=== PATIENT | female | born 1950 | race Two or more races ===

== ENCOUNTER 2020-10-27 20:38 | Emergency (ER) | payer OTHER, MEDICAID ==
[~2020-10-27] VITALS: Ht 160 cm; Wt 63.5 kg
[2020-10-27 22:23] LABS: Basophils # (auto) 0 10 ^3/uL (0-0.2); Basophils % (auto) 0.4 % (0.0-2.0); Eosinophils # (auto) 0.3 10 ^3/uL (0-0.8); Eosinophils % (auto) 4.8 % (0.0-7.0); Hematocrit 37.9 % (36.0-46.0); Hemoglobin 13.5 g/dL (12.2-16.2); Lymphocytes # (auto) 1.9 10 ^3/uL (0.4-5.4); Mean Corpuscular Hemoglobin 32.1 pg (28.0-32.0); Mean Corpuscular Hgb Conc. 35.6 g/dL (32.0-36.0); Mean Corpuscular Volume 90.1 fL (80.0-100.0); Monocytes # (auto) 0.3 10 ^3/uL (0-1.3); Monocytes % (auto) 6.2 % (0.0-12.0); Neutrophils # (auto) 2.9 10 ^3/uL (1.6-8.6); Neutrophils % (auto) 53.6 % (37.0-80.0); Nucleated Red Blood Cells % 0.1 %; Platelet Count (auto) 230 10^3/uL (140-450); Red Cell Distribution Width 13.1 % (11.8-14.3); White Blood Cell 5.4 10^3/uL (4.4-10.8)
[2020-10-27 22:41] LABS: Albumin 3.6 g/dL (3.4-5.0); Anion Gap 5 (5-15); BUN/Creatinine Ratio 12.5; Blood Urea Nitrogen 13 mg/dL (7-18); Calcium 9.4 mg/dL (8.5-10.1); Carbon Dioxide 29 mmol/L (21-32); Chloride 104 mmol/L (98-107); GFR African American 68 mL/min; GFR Non-African American 56 mL/min; Glucose 286 mg/dL (74-106); Potassium 4.1 mmol/L (3.5-5.1); Sodium 138 mmol/L (136-145)
[2020-10-27 22:46] LABS: Alanine Aminotransferase 29 U/L (13-56); Alkaline Phosphatase 57 U/L (45-117); Aspartate Aminotransferase 19 U/L (15-37); Bilirubin, Total 0.2 mg/dL (0.2-1.0); Total Protein 7.4 g/dL (6.4-8.2)
[2020-10-28] MEDS ORDERED: HYDROcodone-ACET 5/325MG TAB PO ONE
[2020-10-28] MEDS ORDERED: HEPARIN DRIP/D5W 100UNITS/ML 250 ML IV SCH ×2 (01:30→02:45)
[2020-10-28] MEDS ORDERED: HEPARIN SODIUM (PORCINE) 5000 UNITS/ML 1ML VIAL IV ONE ×2 (01:30→02:45)
[2020-10-28 01:41] LABS: Urine Bacteria FEW /hpf (None Seen); Urine Blood Negative /uL (Negative); Urine Specific Gravity 1.013 (1.001-1.035); Urine WBC 8 /hpf (0 - 5)
[2020-10-28 02:39] LABS: INR 1.03 (0.9-1.15); Partial Thromboplastin Time 26.5 sec (23.0-31.2)
[2020-10-28 03:44] VITALS: BP 136/59
[2020-10-28] MEDS ORDERED: HYDROcodone-ACET 7.5/325MG TAB PO ONE (04:15)
== END 2020-10-28 05:58 | disposition home or self-care (01) ==
LOC: ER 20:38
DX: I82.602 Acute embolism and thrombosis of unspecified veins of left upper extremity (principal); E78.5 Hyperlipidemia, unspecified; E11.9 Type 2 diabetes mellitus without complications; I10 Essential (primary) hypertension; Z20.822 Contact with and (suspected) exposure to COVID-19
CPT/HCPCS: 36415; 71045; 80053; 81001; 83880; 84484; 85025; 85049; 85610; 85730; 87426; 93005; 93971; 96365; 96376; 99285; J1644

== ENCOUNTER 2020-11-10 10:55 | Emergency (ER) | payer OTHER, MEDICAID ==
[~2020-11-10] VITALS: Ht 165.1 cm; Wt 61.2 kg
[2020-11-10] MEDS ORDERED: LORazepam 2MG/ML-1ML VIAL IV ONE (11:15)
[2020-11-10 11:42] LABS: Basophils # (auto) 0 10 ^3/uL (0-0.2); Basophils % (auto) 0.2 % (0.0-2.0); Eosinophils # (auto) 0 10 ^3/uL (0-0.8); Hematocrit 38.8 % (36.0-46.0); Hemoglobin 13.3 g/dL (12.2-16.2); Lymphocytes # (auto) 1.4 10 ^3/uL (0.4-5.4); Lymphocytes % (auto) 11.9 % (10.0-50.0); Mean Corpuscular Hemoglobin 30.5 pg (28.0-32.0); Mean Corpuscular Hgb Conc. 34.3 g/dL (32.0-36.0); Mean Corpuscular Volume 89.1 fL (80.0-100.0); Monocytes # (auto) 0.8 10 ^3/uL (0-1.3); Monocytes % (auto) 6.3 % (0.0-12.0); Neutrophils # (auto) 9.7 10 ^3/uL (1.6-8.6); Neutrophils % (auto) 81.6 % (37.0-80.0); Red Blood Cells 4.35 10^6/uL (4.0-5.20); Red Cell Distribution Width 13.1 % (11.8-14.3); White Blood Cell 11.9 10^3/uL (4.4-10.8)
[2020-11-10 12:00] LABS: INR 1.22 (0.9-1.15); Partial Thromboplastin Time 35.8 sec (23.0-31.2)
[2020-11-10 12:03] LABS: Chloride 94 mmol/L (98-107); Potassium 3.7 mmol/L (3.5-5.1); Sodium 127 mmol/L (136-145)
[2020-11-10 12:15] LABS: Alanine Aminotransferase 26 U/L (13-56); Albumin 3.9 g/dL (3.4-5.0); Alkaline Phosphatase 54 U/L (45-117); Anion Gap 10 (5-15); Aspartate Aminotransferase 15 U/L (15-37); BUN/Creatinine Ratio 9.7; Blood Urea Nitrogen 11 mg/dL (7-18); Calcium 9.1 mg/dL (8.5-10.1); Carbon Dioxide 23 mmol/L (21-32); GFR African American 62 mL/min; GFR Non-African American 51 mL/min; Glucose 258 mg/dL (74-106); Total Protein 8.4 g/dL (6.4-8.2)
[2020-11-10 13:26] VITALS: BP 105/48
== END 2020-11-10 13:53 | disposition home or self-care (01) ==
LOC: EDBD 10:55 → ER 10:55
DX: F41.9 Anxiety disorder, unspecified (principal); D72.829 Elevated white blood cell count, unspecified; I82.890 Acute embolism and thrombosis of other specified veins; I10 Essential (primary) hypertension; E11.9 Type 2 diabetes mellitus without complications; Z90.49 Acquired absence of other specified parts of digestive tract; Z88.5 Allergy status to narcotic agent
CPT/HCPCS: 36415; 70450; 71045; 80053; 84484; 85025; 85610; 85730; 93005; 93971; 96374; 99285; J2060; J7030

== ENCOUNTER 2021-12-29 14:08 | Inpatient (IN) | payer OTHER, MEDICAID ==
[~2021-12-29] VITALS: Ht 165.1 cm; Wt 63.0 kg
[2021-12-29] MEDS ORDERED: ONDANSETRON HCL 4 MG/2 ML VIAL IV ONE (15:00)
[2021-12-29] MEDS ORDERED: MORPHINE SULFATE 4 MG/ML SYR/VIAL IV ONE (15:00)
[2021-12-29] MEDS ORDERED: SODIUM CHLORIDE 0.9% 500 ML IVB ONE (15:00)
[2021-12-29 16:25] LABS: Hematocrit 25.1 % (36.0-46.0); Hemoglobin 7.9 g/dL (12.2-16.2); Mean Corpuscular Hemoglobin 27.3 pg (28.0-32.0); Mean Corpuscular Hgb Conc. 31.7 g/dL (32.0-36.0); Red Blood Cells 2.92 10^6/uL (4.0-5.20); Red Cell Distribution Width 16.1 % (11.8-14.3)
[2021-12-29 16:29] LABS: Albumin 2.1 g/dL (3.4-5.0); Calcium 8.5 mg/dL (8.5-10.1)
[2021-12-29 16:31] LABS: Bilirubin, Total 0.4 mg/dL (0.2-1.0); Total Protein 6.9 g/dL (6.4-8.2)
[2021-12-29 16:36] LABS: BUN/Creatinine Ratio 29.2
[2021-12-29] MEDS ORDERED: InsuLIN REG 1unit/0.01ml Soln (100units/ml) IV ONE ×2 (16:45→18:30)
[2021-12-29 16:53] LABS: Basophils % (manual) 0 (0.0-2.0); Blast Cells 0; Eosinophils % (manual) 0 (0-7); Myelocytes % 0; Promyelocytes % 0; Reactive Lymphocytes 0
[2021-12-29 17:00] LABS: Band Neutrophils % (manual) 9; Lymphocytes % (manual) 25 (10.0-50.0); Metamyelocytes % 1; Monocytes % (manual) 12 (0-12)
[2021-12-29 17:44] LABS: Lactic Acid w/Reflex 2.8 mmol/L (0.4-2.0)
[2021-12-29 18:08] LABS: Urine Bacteria FEW /hpf (None Seen); Urine Blood Negative /uL (Negative); Urine Specific Gravity 1.017 (1.001-1.035); Urine WBC 5 /hpf (0 - 5)
[2021-12-29] MEDS ORDERED: FUROSEMIDE 40 MG/4 ML VIAL IV ONE (18:15)
[2021-12-29] MEDS ORDERED: DEXTROSE (50%) 50ML SYRG IV PRN (18:15)
[2021-12-29] MEDS ORDERED: NITROGLYCERIN 0.4 MG SL TAB SL PRN (18:15)
[2021-12-29 18:18] LABS: INR 1.4 (0.9-1.15); Partial Thromboplastin Time 37.6 sec (24.6-33.4)
[2021-12-29] MEDS: cefTRIAXone 1GM/50ML D5W 50 ML IV SCH (18:30)
[2021-12-29] MEDS ORDERED: SODIUM CHLORIDE 0.9% 500 ML IV ONE (18:30)
[2021-12-29] MEDS ORDERED: cefTRIAXone 1GM/50ML D5W 50 ML IV ONE (18:30)
[2021-12-29 19:21] LABS: % Iron Saturation 7.3 % (15-50)
[2021-12-29 20:07] LABS: Ferritin 869.6 ng/mL (10-322)
[2021-12-29] MEDS: INSULIN LANTUS (GLARGINE) 1 /0.01ml (100units/ml) SC SCH (20:33)
[2021-12-29] MEDS ORDERED: INSUINJ37 (22:30)
[2021-12-29] MEDS ORDERED: BENA20TA14 (22:30)
[2021-12-29] MEDS ORDERED: ATOR20TA50 PO (23:29)
[2021-12-30] VITALS (9 sets, daily range): BP systolic 91–124; BP diastolic 38–55
[2021-12-30] MEDS: PANTOPRAZOLE 40 MG/10 ML VIAL INJ IV SCH ×3 (00:46→22:05)
[2021-12-30] MEDS: metroNIDAZOLE 500MG/100ML 100 ML IV SCH ×4 (00:47→22:05)
[2021-12-30] MEDS: INSULIN LANTUS (GLARGINE) 1 /0.01ml (100units/ml) SC SCH ×2 (00:47→22:21)
[2021-12-30] MEDS: ACCU-CHEK COMFORT CURVE STRIP VI SCH ×4 (01:02→17:57)
[2021-12-30] MEDS: InsuLIN REG 1unit/0.01ml Soln (100units/ml) SC SCH ×4 (01:07→18:24)
[2021-12-30 05:09] LABS: Hematocrit 20.7 % (36.0-46.0); Mean Corpuscular Hemoglobin 28.1 pg (28.0-32.0); Mean Corpuscular Volume 85.3 fL (80.0-100.0); Red Blood Cells 2.43 10^6/uL (4.0-5.20)
[2021-12-30 05:15] LABS: Albumin 1.7 g/dL (3.4-5.0); BUN/Creatinine Ratio 27.8; Calcium 8.4 mg/dL (8.5-10.1)
[2021-12-30 05:18] LABS: Bilirubin, Total 0.3 mg/dL (0.2-1.0); Hemoglobin 6.8 g/dL (12.2-16.2); White Blood Cell 0.8 10^3/uL (4.4-10.8)
[2021-12-30 05:19] LABS: Basophils % (manual) 0 (0.0-2.0); Blast Cells 0; Eosinophils % (manual) 0 (0-7); Myelocytes % 0; Reactive Lymphocytes 0
[2021-12-30] MEDS: FUROSEMIDE 20 MG/2 ML VIAL IV SCH ×2 (05:34→18:00)
[2021-12-30 08:31] LABS: Band Neutrophils % (manual) 10; Lymphocytes % (manual) 33 (10.0-50.0); Metamyelocytes % 1; Monocytes % (manual) 6 (0-12); Promyelocytes % 2
[2021-12-30] MEDS: cefTRIAXone 1GM/50ML D5W 50 ML IV SCH (09:11)
[2021-12-30] MEDS: ALBUMIN 25% 100 ML IV SCH ×2 (10:38→17:12)
[2021-12-30] MEDS ORDERED: LACTULOSE 20Gm/30ML SOLN PO PRN (12:00)
[2021-12-30] MEDS: ACETAMINOPHEN 325 MG TAB PO PRN ×2 (13:15→20:40)
[2021-12-30] MEDS: SUCRALFATE 1 GM/10 ML ORAL SUSP PO SCH ×2 (17:11→22:04)
[2021-12-30 17:12] LABS: Hemoglobin 8.1 g/dL (12.2-16.2)
[2021-12-30 17:14] LABS: Hematocrit 25.1 % (36.0-46.0)
[2021-12-30] MEDS: ONDANSETRON HCL 4 MG/2 ML VIAL IV PRN (17:57)
[2021-12-30] MEDS: MIDODRINE HCL 10 MG TAB PO SCH (18:25)
[2021-12-30 23:02] LABS: Hemoglobin 7.6 g/dL (12.2-16.2)
[2021-12-30 23:04] LABS: Hematocrit 22.8 % (36.0-46.0)
[2021-12-30] MEDS: FILGRASTIM (TBO) 300 MCG/0.5 ML SYRG SC SCH (23:36)
[2021-12-31] VITALS (7 sets, daily range): BP systolic 117–120; BP diastolic 52–57
[2021-12-31] MEDS: ACCU-CHEK COMFORT CURVE STRIP VI SCH ×4 (00:33→16:58)
[2021-12-31] MEDS: ALBUMIN 25% 100 ML IV SCH (01:15)
[2021-12-31] MEDS: InsuLIN REG 1unit/0.01ml Soln (100units/ml) SC SCH ×4 (06:00→16:57)
[2021-12-31] MEDS: SUCRALFATE 1 GM/10 ML ORAL SUSP PO SCH ×4 (06:07→21:17)
[2021-12-31] MEDS: metroNIDAZOLE 500MG/100ML 100 ML IV SCH ×3 (06:07→21:17)
[2021-12-31] MEDS: MIDODRINE HCL 10 MG TAB PO SCH ×3 (06:07→17:49)
[2021-12-31] MEDS: FUROSEMIDE 20 MG/2 ML VIAL IV SCH ×2 (06:08→17:49)
[2021-12-31 07:23] LABS: BUN/Creatinine Ratio 29.2; Calcium 9.3 mg/dL (8.5-10.1); Potassium 3.1 mmol/L (3.5-5.1)
[2021-12-31] MEDS ORDERED: POTASSIUM CHL 20MEQ/100ML 100 ML IV SCH (08:30)
[2021-12-31] MEDS: cefTRIAXone 1GM/50ML D5W 50 ML IV SCH (08:53)
[2021-12-31] MEDS ORDERED: POTASSIUM CHLORIDE 40 MEQ, LIDOCAINE 1% (LOCAL ANESTH.) 4 ML in SODIUM CHL 0.9% 250 ML IV ONE (09:15)
[2021-12-31] MEDS: PANTOPRAZOLE 40 MG/10 ML VIAL INJ IV SCH ×2 (09:40→21:17)
[2021-12-31] MEDS: FILGRASTIM (TBO) 300 MCG/0.5 ML SYRG SC SCH (09:40)
[2021-12-31] MEDS ORDERED: FILGRASTIM (TBO) 300 MCG/0.5 ML SYRG SC SCH (10:00)
[2021-12-31] MEDS: ACETAMINOPHEN 325 MG TAB PO PRN (12:40)
[2021-12-31 13:44] LABS: Hematocrit 29.3 % (36.0-46.0); Hemoglobin 9.3 g/dL (12.2-16.2); Mean Corpuscular Hemoglobin 27.3 pg (28.0-32.0); Mean Corpuscular Hgb Conc. 31.8 g/dL (32.0-36.0); Mean Corpuscular Volume 85.8 fL (80.0-100.0); Red Blood Cells 3.41 10^6/uL (4.0-5.20); White Blood Cell 4.6 10^3/uL (4.4-10.8)
[2021-12-31 14:05] LABS: Basophils % (manual) 0 (0.0-2.0); Blast Cells 0; Eosinophils % (manual) 0 (0-7); Metamyelocytes % 0; Myelocytes % 0; Promyelocytes % 0
[2021-12-31] MEDS: ONDANSETRON HCL 4 MG/2 ML VIAL IV PRN (14:43)
[2021-12-31 14:53] LABS: Band Neutrophils % (manual) 20; Lymphocytes % (manual) 11 (10.0-50.0); Monocytes % (manual) 9 (0-12); Reactive Lymphocytes 1
[2021-12-31] MEDS ORDERED: ALBUMIN 25% 100 ML IV SCH (15:00)
[2021-12-31 15:18] LABS: Calcium 8.8 mg/dL (8.5-10.1); Potassium 4.1 mmol/L (3.5-5.1)
[2021-12-31 15:21] LABS: Albumin 2.2 g/dL (3.4-5.0); BUN/Creatinine Ratio 28.9
[2021-12-31] MEDS: SODIUM FERR GLUC 62.5MG/5ML 125 MG in SODIUM CHL 0.9% 100 ML IV SCH (15:23)
[2021-12-31 15:24] LABS: Bilirubin, Total 0.4 mg/dL (0.2-1.0); Total Protein 6.3 g/dL (6.4-8.2)
[2021-12-31] MEDS: INSULIN LANTUS (GLARGINE) 1 /0.01ml (100units/ml) SC SCH (21:28)
[2022-01-01] MEDS: ACCU-CHEK COMFORT CURVE STRIP VI SCH ×4 (03:21→17:40)
[2022-01-01 05:00] VITALS: BP 135/62
[2022-01-01] MEDS: InsuLIN REG 1unit/0.01ml Soln (100units/ml) SC SCH ×4 (05:10→17:42)
[2022-01-01] MEDS: metroNIDAZOLE 500MG/100ML 100 ML IV SCH ×3 (05:30→22:18)
[2022-01-01] MEDS: SUCRALFATE 1 GM/10 ML ORAL SUSP PO SCH ×4 (05:30→22:19)
[2022-01-01] MEDS: MIDODRINE HCL 10 MG TAB PO SCH ×3 (05:30→17:08)
[2022-01-01] MEDS: FUROSEMIDE 20 MG/2 ML VIAL IV SCH ×2 (05:31→17:09)
[2022-01-01 07:38] LABS: Hematocrit 26.6 % (36.0-46.0); Hemoglobin 8.7 g/dL (12.2-16.2); Mean Corpuscular Hemoglobin 27.8 pg (28.0-32.0); Mean Corpuscular Hgb Conc. 32.8 g/dL (32.0-36.0); Mean Corpuscular Volume 84.7 fL (80.0-100.0); Red Blood Cells 3.14 10^6/uL (4.0-5.20); White Blood Cell 14.6 10^3/uL (4.4-10.8)
[2022-01-01 07:51] LABS: Basophils % (manual) 0 (0.0-2.0); Blast Cells 0; Eosinophils % (manual) 0 (0-7); Metamyelocytes % 0; Myelocytes % 0; Promyelocytes % 0; Reactive Lymphocytes 0
[2022-01-01 07:55] LABS: Albumin 2.4 g/dL (3.4-5.0); Calcium 8.6 mg/dL (8.5-10.1); Potassium 3.7 mmol/L (3.5-5.1)
[2022-01-01 07:58] LABS: Bilirubin, Total 0.4 mg/dL (0.2-1.0); Total Protein 5.6 g/dL (6.4-8.2)
[2022-01-01 08:00] VITALS: BP 123/89
[2022-01-01 09:00] VITALS: BP 114/54
[2022-01-01 09:37] LABS: Band Neutrophils % (manual) 4; Lymphocytes % (manual) 9 (10.0-50.0); Monocytes % (manual) 7 (0-12)
[2022-01-01] MEDS: PANTOPRAZOLE 40 MG/10 ML VIAL INJ IV SCH ×2 (09:43→22:18)
[2022-01-01] MEDS: cefTRIAXone 1GM/50ML D5W 50 ML IV SCH (09:43)
[2022-01-01] MEDS: FILGRASTIM (TBO) 300 MCG/0.5 ML SYRG SC SCH (09:45)
[2022-01-01 13:00] VITALS: BP 120/54
[2022-01-01] MEDS: SODIUM FERR GLUC 62.5MG/5ML 125 MG in SODIUM CHL 0.9% 100 ML IV SCH (13:08)
[2022-01-01 17:00] VITALS: BP 121/60
[2022-01-01] MEDS: ACETAMINOPHEN 325 MG TAB PO PRN (17:22)
[2022-01-01 22:00] VITALS: BP 119/53
[2022-01-01] MEDS: INSULIN LANTUS (GLARGINE) 1 /0.01ml (100units/ml) SC SCH (22:36)
[2022-01-02] VITALS (7 sets, daily range): BP systolic 111–141; BP diastolic 56–66
[2022-01-02] MEDS: ACCU-CHEK COMFORT CURVE STRIP VI SCH ×4 (00:35→17:27)
[2022-01-02] MEDS: InsuLIN REG 1unit/0.01ml Soln (100units/ml) SC SCH ×4 (00:41→17:27)
[2022-01-02] MEDS: ACETAMINOPHEN 325 MG TAB PO PRN ×3 (00:46→23:19)
[2022-01-02] MEDS: MIDODRINE HCL 10 MG TAB PO SCH ×3 (06:36→17:26)
[2022-01-02] MEDS: FUROSEMIDE 20 MG/2 ML VIAL IV SCH ×2 (06:36→18:00)
[2022-01-02] MEDS: metroNIDAZOLE 500MG/100ML 100 ML IV SCH ×3 (06:36→23:06)
[2022-01-02] MEDS: SUCRALFATE 1 GM/10 ML ORAL SUSP PO SCH ×4 (06:48→23:06)
[2022-01-02 07:27] LABS: Albumin 2.2 g/dL (3.4-5.0); Calcium 8.3 mg/dL (8.5-10.1); Potassium 3.4 mmol/L (3.5-5.1)
[2022-01-02 07:32] LABS: BUN/Creatinine Ratio 28.8; Bilirubin, Total 0.3 mg/dL (0.2-1.0); Total Protein 5.3 g/dL (6.4-8.2)
[2022-01-02 07:34] LABS: Hemoglobin 8.3 g/dL (12.2-16.2); Red Cell Distribution Width 16.4 % (11.8-14.3); White Blood Cell 21.8 10^3/uL (4.4-10.8)
[2022-01-02 07:38] LABS: Hematocrit 25.7 % (36.0-46.0); Mean Corpuscular Hemoglobin 27.7 pg (28.0-32.0); Mean Corpuscular Hgb Conc. 32.4 g/dL (32.0-36.0); Mean Corpuscular Volume 85.3 fL (80.0-100.0); Red Blood Cells 3.01 10^6/uL (4.0-5.20)
[2022-01-02 07:44] LABS: Basophils % (manual) 0 (0.0-2.0); Blast Cells 0; Eosinophils % (manual) 0 (0-7); Reactive Lymphocytes 0
[2022-01-02] MEDS: cefTRIAXone 1GM/50ML D5W 50 ML IV SCH (08:46)
[2022-01-02 09:20] LABS: Band Neutrophils % (manual) 9; Lymphocytes % (manual) 11 (10.0-50.0); Metamyelocytes % 1; Monocytes % (manual) 8 (0-12); Myelocytes % 3; Promyelocytes % 1
[2022-01-02] MEDS ORDERED: ERTAPENEM SOD INJ 1 GM in SODIUM CHL 0.9% 50 ML IV ONE (10:15)
[2022-01-02] MEDS: PANTOPRAZOLE 40 MG/10 ML VIAL INJ IV SCH ×2 (10:36→23:06)
[2022-01-02] MEDS ORDERED: POTASSIUM CHLORIDE 40 MEQ, LIDOCAINE 1% (LOCAL ANESTH.) 4 ML in SODIUM CHL 0.9% 250 ML IV ONE (11:00)
[2022-01-02] MEDS: SODIUM FERR GLUC 62.5MG/5ML 125 MG in SODIUM CHL 0.9% 100 ML IV SCH (12:35)
[2022-01-02 13:09] LABS: Folate (Folic Acid) 6.03 ng/mL (5.38-24)
[2022-01-02] MEDS: INSULIN LANTUS (GLARGINE) 1 /0.01ml (100units/ml) SC SCH (23:18)
[2022-01-03] MEDS: ACCU-CHEK COMFORT CURVE STRIP VI SCH ×5 (00:33→23:18)
[2022-01-03] MEDS: InsuLIN REG 1unit/0.01ml Soln (100units/ml) SC SCH ×5 (00:43→23:19)
[2022-01-03 05:00] VITALS: BP 140/78
[2022-01-03] MEDS: MIDODRINE HCL 10 MG TAB PO SCH ×3 (05:52→17:42)
[2022-01-03] MEDS: FUROSEMIDE 20 MG/2 ML VIAL IV SCH ×2 (06:33→17:47)
[2022-01-03] MEDS: metroNIDAZOLE 500MG/100ML 100 ML IV SCH ×3 (06:34→23:17)
[2022-01-03] MEDS: SUCRALFATE 1 GM/10 ML ORAL SUSP PO SCH ×4 (06:34→23:17)
[2022-01-03 09:00] VITALS: BP_SYST 118; BP_SYST 143; BP_DIAS 76; BP_DIAS 84
[2022-01-03 09:41] LABS: Basophils # (auto) 0 10 ^3/uL (0-0.2); Basophils % (auto) 0.2 % (0.0-2.0); Eosinophils # (auto) 0 10 ^3/uL (0-0.8); Eosinophils % (auto) 0.1 % (0.0-7.0); Hematocrit 30.2 % (36.0-46.0); Hemoglobin 9.4 g/dL (12.2-16.2); Lymphocytes # (auto) 1.6 10 ^3/uL (0.4-5.4); Lymphocytes % (auto) 11.7 % (10.0-50.0); Mean Corpuscular Hemoglobin 27.1 pg (28.0-32.0); Mean Corpuscular Hgb Conc. 31.1 g/dL (32.0-36.0); Mean Corpuscular Volume 87.3 fL (80.0-100.0); Monocytes # (auto) 1.2 10 ^3/uL (0-1.3); Monocytes % (auto) 8.9 % (0.0-12.0); Neutrophils # (auto) 10.6 10 ^3/uL (1.6-8.6); Neutrophils % (auto) 79.1 % (37.0-80.0); Red Blood Cells 3.46 10^6/uL (4.0-5.20); Red Cell Distribution Width 16.7 % (11.8-14.3); White Blood Cell 13.5 10^3/uL (4.4-10.8)
[2022-01-03] MEDS: PANTOPRAZOLE 40 MG/10 ML VIAL INJ IV SCH ×2 (10:02→23:17)
[2022-01-03] MEDS: ERTAPENEM SOD INJ 1 GM in SODIUM CHL 0.9% 50 ML IV SCH (10:03)
[2022-01-03 10:06] LABS: Albumin 2.4 g/dL (3.4-5.0); Calcium 8.1 mg/dL (8.5-10.1); Potassium 3.2 mmol/L (3.5-5.1)
[2022-01-03 10:11] LABS: BUN/Creatinine Ratio 24.2; Bilirubin, Total 0.3 mg/dL (0.2-1.0)
[2022-01-03] MEDS: SODIUM FERR GLUC 62.5MG/5ML 125 MG in SODIUM CHL 0.9% 100 ML IV SCH (12:05)
[2022-01-03 13:00] VITALS: BP 132/69
[2022-01-03] MEDS ORDERED: POTASSIUM CHL 20 Meq TABLET PO ONE (13:30)
[2022-01-03 16:40] VITALS: BP 141/72
[2022-01-03 20:00] VITALS: BP 132/68
[2022-01-03 22:00] VITALS: BP 132/68
[2022-01-03] MEDS: ACETAMINOPHEN 325 MG TAB PO PRN (23:18)
[2022-01-03] MEDS: INSULIN LANTUS (GLARGINE) 1 /0.01ml (100units/ml) SC SCH (23:19)
[2022-01-04] VITALS (8 sets, daily range): BP systolic 133–145; BP diastolic 68–82
[2022-01-04 04:18] LABS: Hematocrit 26.9 % (36.0-46.0); Hemoglobin 8.7 g/dL (12.2-16.2); Mean Corpuscular Hemoglobin 27.4 pg (28.0-32.0); Mean Corpuscular Hgb Conc. 32.5 g/dL (32.0-36.0); Mean Corpuscular Volume 84.4 fL (80.0-100.0); Red Blood Cells 3.19 10^6/uL (4.0-5.20); Red Cell Distribution Width 16.7 % (11.8-14.3); White Blood Cell 9.8 10^3/uL (4.4-10.8)
[2022-01-04 04:35] LABS: Basophils % (manual) 0 (0.0-2.0); Blast Cells 0; Promyelocytes % 0; Reactive Lymphocytes 0
[2022-01-04 04:58] LABS: INR 1.34 (0.9-1.15); Partial Thromboplastin Time 34.7 sec (24.6-33.4)
[2022-01-04] MEDS: metroNIDAZOLE 500MG/100ML 100 ML IV SCH ×3 (06:42→23:08)
[2022-01-04] MEDS: MIDODRINE HCL 10 MG TAB PO SCH ×3 (06:42→17:57)
[2022-01-04] MEDS: FUROSEMIDE 20 MG/2 ML VIAL IV SCH ×2 (06:42→17:57)
[2022-01-04] MEDS: ACCU-CHEK COMFORT CURVE STRIP VI SCH ×4 (06:42→23:09)
[2022-01-04] MEDS: InsuLIN REG 1unit/0.01ml Soln (100units/ml) SC SCH ×4 (06:43→23:18)
[2022-01-04 07:02] LABS: Albumin 2.2 g/dL (3.4-5.0); Calcium 7.7 mg/dL (8.5-10.1); Potassium 3.8 mmol/L (3.5-5.1)
[2022-01-04 07:06] LABS: Bilirubin, Total 0.4 mg/dL (0.2-1.0); Total Protein 5.5 g/dL (6.4-8.2)
[2022-01-04 07:35] LABS: Band Neutrophils % (manual) 4; Eosinophils % (manual) 1 (0-7); Lymphocytes % (manual) 14 (10.0-50.0); Metamyelocytes % 1; Monocytes % (manual) 5 (0-12); Myelocytes % 1
[2022-01-04 07:55] LABS: BUN/Creatinine Ratio 21.5
[2022-01-04] MEDS: SUCRALFATE 1 GM/10 ML ORAL SUSP PO SCH ×4 (07:56→23:09)
[2022-01-04] MEDS ORDERED: SODIUM CHLORIDE LOCK 10 ML ONE (08:55)
[2022-01-04] MEDS ORDERED: MIDAZOLAM HCL 5 MG/ML-1ML VIAL ONE (08:55)
[2022-01-04] MEDS ORDERED: NALOXONE HCL 0.4 MG/ML VIAL ONE (08:55)
[2022-01-04] MEDS ORDERED: FLUMAZENIL 0.1 MG/ML INJ 10ML MDV IV ONE (08:55)
[2022-01-04] MEDS ORDERED: EPINEPHrine HCL 1 MG/10 ML SYRG ONE (08:55)
[2022-01-04] MEDS ORDERED: diphenhdrAMINE HCL 50 MG/1 ML VL ONE (08:55)
[2022-01-04] MEDS ORDERED: LIDOCAINE VISCOUS 2% 15ML UD ONE (08:56)
[2022-01-04] MEDS ORDERED: fentaNYL CITRATE 100 MCG/2 ML VL ONE (08:56)
[2022-01-04] MEDS: PANTOPRAZOLE 40 MG/10 ML VIAL INJ IV SCH ×2 (10:22→23:09)
[2022-01-04] MEDS: ERTAPENEM SOD INJ 1 GM in SODIUM CHL 0.9% 50 ML IV SCH (10:23)
[2022-01-04] MEDS: SODIUM FERR GLUC 62.5MG/5ML 125 MG in SODIUM CHL 0.9% 100 ML IV SCH (16:54)
[2022-01-04] MEDS: ACETAMINOPHEN 325 MG TAB PO PRN (18:31)
[2022-01-04] MEDS: INSULIN LANTUS (GLARGINE) 1 /0.01ml (100units/ml) SC SCH (23:18)
[2022-01-05 05:00] VITALS: BP 123/38
[2022-01-05 05:03] LABS: Hematocrit 26.8 % (36.0-46.0); Hemoglobin 8.7 g/dL (12.2-16.2); Mean Corpuscular Hgb Conc. 32.3 g/dL (32.0-36.0); Mean Corpuscular Volume 86.8 fL (80.0-100.0); Red Blood Cells 3.09 10^6/uL (4.0-5.20); Red Cell Distribution Width 16.4 % (11.8-14.3); White Blood Cell 8.3 10^3/uL (4.4-10.8)
[2022-01-05 05:22] LABS: Basophils % (manual) 0 (0.0-2.0); Blast Cells 0; Eosinophils % (manual) 0 (0-7); Promyelocytes % 0; Reactive Lymphocytes 0
[2022-01-05 05:29] LABS: Potassium 3.3 mmol/L (3.5-5.1)
[2022-01-05] MEDS: metroNIDAZOLE 500MG/100ML 100 ML IV SCH (05:30)
[2022-01-05] MEDS: FUROSEMIDE 20 MG/2 ML VIAL IV SCH (05:31)
[2022-01-05] MEDS: MIDODRINE HCL 10 MG TAB PO SCH ×2 (05:31→11:49)
[2022-01-05] MEDS: ACCU-CHEK COMFORT CURVE STRIP VI SCH ×2 (05:31→11:49)
[2022-01-05] MEDS: ACETAMINOPHEN 325 MG TAB PO PRN (05:32)
[2022-01-05 05:38] LABS: Albumin 2.2 g/dL (3.4-5.0); BUN/Creatinine Ratio 20.9; Bilirubin, Total 0.4 mg/dL (0.2-1.0); Calcium 7.8 mg/dL (8.5-10.1); Total Protein 5.7 g/dL (6.4-8.2)
[2022-01-05] MEDS: InsuLIN REG 1unit/0.01ml Soln (100units/ml) SC SCH ×2 (05:57→12:01)
[2022-01-05] MEDS: SUCRALFATE 1 GM/10 ML ORAL SUSP PO SCH ×2 (06:03→09:48)
[2022-01-05 07:30] VITALS: BP 123/38
[2022-01-05] MEDS ORDERED: POTASSIUM CHL 20 Meq TABLET PO ONE (07:30)
[2022-01-05 07:56] LABS: Band Neutrophils % (manual) 3; Lymphocytes % (manual) 10 (10.0-50.0); Metamyelocytes % 1; Monocytes % (manual) 8 (0-12); Myelocytes % 1
[2022-01-05 09:00] VITALS: BP 124/74
[2022-01-05] MEDS ORDERED: FERR-7 PO (09:26)
[2022-01-05] MEDS ORDERED: SUCR1TAB PO (09:26)
[2022-01-05] MEDS ORDERED: PANT40T PO (09:26)
[2022-01-05] MEDS ORDERED: METR500T PO (09:26)
[2022-01-05] MEDS ORDERED: LEVO500T31 PO (09:26)
[2022-01-05] MEDS: ERTAPENEM SOD INJ 1 GM in SODIUM CHL 0.9% 50 ML IV SCH (09:47)
[2022-01-05] MEDS: PANTOPRAZOLE 40 MG/10 ML VIAL INJ IV SCH (09:48)
[2022-01-05 12:08] VITALS: BP 123/38
[2022-01-05] MEDS: SODIUM FERR GLUC 62.5MG/5ML 125 MG in SODIUM CHL 0.9% 100 ML IV SCH (13:12)
[2022-01-05 13:19] VITALS: BP 138/55
== END 2022-01-05 14:00 | disposition home or self-care (01) | DRG 871 ==
LOC: EDBD 14:08 → ER 14:08 → TELE 18:24 → TELE-EAST 22:31
PROVIDERS: ADMIT Registered Nurse; ATTEND Family Medicine
PROC: 30233N1 Transfusion of Nonautologous Red Blood Cells into Peripheral Vein, Percutaneous Approach (ICD-10-PCS; 2021-12-30)
PROC: 0W9G3ZZ Drainage of Peritoneal Cavity, Percutaneous Approach (ICD-10-PCS; 2022-01-02)
PROC: 0DB68ZX Excision of Stomach, Via Natural or Artificial Opening Endoscopic, Diagnostic (ICD-10-PCS; principal; 2022-01-04 12:45)
DX: A41.9 Sepsis, unspecified organism (principal); E43 Unspecified severe protein-calorie malnutrition; K29.71 Gastritis, unspecified, with bleeding; N17.0 Acute kidney failure with tubular necrosis; R18.0 Malignant ascites; C56.9 Malignant neoplasm of unspecified ovary; E11.22 Type 2 diabetes mellitus with diabetic chronic kidney disease; E11.65 Type 2 diabetes mellitus with hyperglycemia; I12.9 Hypertensive chronic kidney disease with stage 1 through stage 4 chronic kidney disease, or unspecified chronic kidney disease; K52.9 Noninfective gastroenteritis and colitis, unspecified; N18.31 Chronic kidney disease, stage 3a; C55 Malignant neoplasm of uterus, part unspecified; D50.9 Iron deficiency anemia, unspecified; E78.5 Hyperlipidemia, unspecified; D70.9 Neutropenia, unspecified; E88.09 Other disorders of plasma-protein metabolism, not elsewhere classified; Z20.822 Contact with and (suspected) exposure to COVID-19; K44.9 Diaphragmatic hernia without obstruction or gangrene; K59.00 Constipation, unspecified; B96.89 Other specified bacterial agents as the cause of diseases classified elsewhere; T45.1X5A Adverse effect of antineoplastic and immunosuppressive drugs, initial encounter; Y92.89 Other specified places as the place of occurrence of the external cause; Z85.42 Personal history of malignant neoplasm of other parts of uterus; Z85.43 Personal history of malignant neoplasm of ovary; Z90.710 Acquired absence of both cervix and uterus; Z88.5 Allergy status to narcotic agent; Z90.49 Acquired absence of other specified parts of digestive tract; Z92.21 Personal history of antineoplastic chemotherapy; Z68.23 Body mass index [BMI] 23.0-23.9, adult
CPT/HCPCS: 36415; 36600; 43239; 71045; 74176; 76700; 76830; 76856; 76942; 80048; 80053; 81001; 82010; 82105; 82140; 82150; 82378; 82570; 82607; 82728; 82746; 82805; 82962; 83540; 83550; 83605; 83615; 83690; 83930; 83986; 84156; 84300; 84484; 85007; 85014; 85018; 85025; 85027; 85045; 85384; 85610; 85730; 86301; 86304; 86850; 86900; 86901; 86920; 87040; 87086; 87205; 89051; 93005; 93970; 96361; 96365; 96375; C9113; G0378; J0696; J1335; J1447; J1815; J2001; J2250; J2405; J3490; P9047

== ENCOUNTER 2022-08-16 19:33 | Emergency (ER) | payer MEDICARE, MEDICAID ==
[~2022-08-16] VITALS: Ht 160 cm; Wt 55.0 kg
[~2022-08-16 19:33] MED LIST: ATOR20TA50 PO; BENA20TA14; FERR-7 PO; INSUINJ37; LEVO500T31 PO; METR500T PO; PANT40T PO; SUCR1TAB PO
[2022-08-16 19:46] VITALS: BP 112/77
[2022-08-16 20:15] LABS: Basophils # (auto) 0 10 ^3/uL (0-0.2); Eosinophils # (auto) 0 10 ^3/uL (0-0.8); Hemoglobin 8.3 g/dL (12.2-16.2); Lymphocytes # (auto) 0.3 10 ^3/uL (0.4-5.4); Monocytes # (auto) 0.7 10 ^3/uL (0-1.3); Neutrophils # (auto) 6.3 10 ^3/uL (1.6-8.6); Neutrophils % (auto) 85.9 % (37.0-80.0)
[2022-08-16 20:17] LABS: Basophils % (auto) 0.2 % (0.0-2.0); Hematocrit 25.2 % (36.0-46.0); Lymphocytes % (auto) 4.5 % (10.0-50.0); Mean Corpuscular Hemoglobin 33.8 pg (28.0-32.0); Mean Corpuscular Hgb Conc. 33.1 g/dL (32.0-36.0); Mean Corpuscular Volume 102.1 fL (80.0-100.0); Monocytes % (auto) 9.4 % (0.0-12.0); Red Blood Cells 2.47 10^6/uL (4.0-5.20); White Blood Cell 7.4 10^3/uL (4.4-10.8)
[2022-08-16 20:38] LABS: Albumin 1.6 g/dL (3.4-5.0); BUN/Creatinine Ratio 17.9 (10.0-20.0); Calcium 7.8 mg/dL (8.5-10.1); Potassium 5.3 mmol/L (3.5-5.1)
[2022-08-16 20:41] LABS: Bilirubin, Total 0.2 mg/dL (0.2-1.0); Total Protein 5.5 g/dL (6.4-8.2)
[2022-08-16 21:07] LABS: Red Cell Distribution Width 20.3 % (11.8-14.3)
[2022-08-16] MEDS ORDERED: CALCIUM GLUC 1,000mg/50ml-NS 50 ML IV ONE (21:15)
[2022-08-16] MEDS ORDERED: InsuLIN REG 1unit/0.01ml Soln (100units/ml) IV ONE (21:15)
[2022-08-16] MEDS ORDERED: SODIUM BICARBONATE 8.4 % INJ 50ML VIAL IV ONE (21:15)
[2022-08-16] MEDS ORDERED: LACTATED RINGER'S 1,000 ML IV ONE (21:15)
[2022-08-16] MEDS ORDERED: DEXTROSE (50%) 50ML SYRG IV ONE (21:15)
== END 2022-08-17 01:13 | disposition left against medical advice (07) ==
LOC: EDUNIT# 19:33 → EDSEX 19:33 → ER 19:33 → EDBD 19:33 → ER 08-17 01:13
DX: R53.1 Weakness (principal); Z53.21 Procedure and treatment not carried out due to patient leaving prior to being seen by health care provider
CPT/HCPCS: 36415; 80053; 83605; 83880; 84484; 85025; 93005; 99281; J7042